=== PATIENT | female | born 1975 | race African-American/Black ===

== ENCOUNTER → 2020-04-06 | Outpatient (CLI) | payer BC ==
--- NOTE | 2020-04-06 16:00 | RAD ---
EXAM: Pelvic sonogram. HISTORY: Menorrhagia. TECHNIQUE: Transabdominal and transvaginal sonographic imaging of the pelvis was performed. COMPARISON: None. FINDINGS: The uterus measures 10.5 x 4.2 x 4.3 cm. There is a 2.1 x 1.8 x 1.4 cm heterogeneous lesion within the anterior uterine fundus, possibly a small uterine fibroid. The endometrial stripe measures 1.4 cm in thickness. The ovaries are obscured due to bowel gas. There is a small amount of free fluid within the posterior cul-de-sac. There is a suspected tiny nabothian cysts within the cervix. IMPRESSION: 1. Possible small uterine fibroid measuring 2.1 cm. 2. Thickened endometrial stripe. Correlate with the phase the patient's menstrual cycle. 3. Obscured ovaries due to bowel gas. 4. Small amount of nonspecific pelvic free fluid. Electronically signed by: Enedelia Ayon MD (04/06/2020 3:57 PM) [id number]
== END | disposition home or self-care (01) ==
LOC: US 14:51
PROVIDERS: ATTEND Obstetrics & Gynecology
DX: Z01.419 Encounter for gynecological examination (general) (routine) without abnormal findings (principal); N92.0 Excessive and frequent menstruation with regular cycle; D25.9 Leiomyoma of uterus, unspecified; R93.89 Abnormal findings on diagnostic imaging of other specified body structures
CPT/HCPCS: 76830; 76856

== ENCOUNTER → 2021-06-29 | Outpatient (CLI) | payer OTHER ==
[2021-06-29 10:19] LABS: BASO % 1 % (0-3); EOS # 0.1 x10^3/uL (0.0-0.7); EOS % 1 % (0-3); HEMATOCRIT 37.4 % (36.0-47.0); HEMOGLOBIN 11.8 g/dL (12.0-15.5); LYMPH # 1.3 x10^3/uL (1.0-4.8); LYMPH % 23 % (24-48); MEAN CORPUSCULAR HEMOGLOBIN 25 pg (25-35); MEAN CORPUSCULAR HGB CONC 32 g/dL (31-37); MEAN CORPUSCULAR VOLUME 80 fL (79-100); MONO # 0.5 x10^3/uL (0.0-1.1); MONO % 8 % (0-9); NEUT # 3.7 x10^3uL (1.8-7.7); NEUT % 67 % (31-73); PLATELET COUNT 300 x10^3/uL (140-400); RED BLOOD COUNT 4.67 x10^6/uL (3.50-5.40); RED CELL DISTRIBUTION WIDTH 15.6 % (11.5-14.5); WHITE BLOOD COUNT 5.6 x10^3/uL (4.0-11.0)
[2021-06-29 10:29] LABS: ALBUMIN 3.3 g/dL (3.4-5.0); ALBUMIN/GLOBULIN RATIO 0.8 (1.0-1.7); CALCIUM 8.2 mg/dL (8.5-10.1); CREATININE 0.9 mg/dL (0.6-1.0); GFR 82.3; POTASSIUM 4.2 mmol/L (3.5-5.1); TOTAL BILIRUBIN 0.4 mg/dL (0.2-1.0); TOTAL PROTEIN 7.4 g/dL (6.4-8.2)
[2021-06-29 14:46] LABS: THYROID STIM HORMONE (TSH) 2.083 uIU/mL (0.358-3.740)
[2021-06-30 05:37] LABS: HEMOGLOBIN A1C 9.2 % (4.8-5.6)
== END ==
LOC: LAB 09:28
PROVIDERS: ATTEND Family Medicine
DX: E10.65 Type 1 diabetes mellitus with hyperglycemia (principal); E87.6 Hypokalemia; I10 Essential (primary) hypertension; E78.00 Pure hypercholesterolemia, unspecified; E03.9 Hypothyroidism, unspecified; R80.8 Other proteinuria
CPT/HCPCS: 36415; 80053; 80061; 83036; 84443; 85025